=== PATIENT | female | born 1970 | race Caucasian/White ===

== ENCOUNTER → 2019-05-17 | Day surgery (SDC) | payer OTHER ==
[~2019-05-17] MED LIST: FLONASE16 GM NASAL; PRILOSEC OTC20 MG PO; SINGULAIR10 MG PO; VENTOLIN HFA18 GM IH
== END | disposition home or self-care (01) ==
LOC: ADM 05-12 07:15 → CIR.AMB 04:55
DX: K80.10 Calculus of gallbladder with chronic cholecystitis without obstruction (principal)